=== PATIENT | male | born 1955 | race Caucasian/White ===

== ENCOUNTER 2025-04-16 23:20 | Emergency (ER) | payer MEDICARE, SELFPAY ==
--- NOTE | 2025-04-16 23:43 | ECG_ITS ---
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 Measurements Intervals [place] Rate: 88 P: 0 MA: 0 QRS: 130 QRSD: 105 T: 9 QT: 378 QTc: 460 Interpretive Statements ATRIAL FIBRILLATION INDETERMINATE AXIS LEFT POSTERIOR FASCICULAR BLOCK [QRS AXIS > 109, INFERIOR Q] POSSIBLE ANTERIOR MYOCARDIAL INFARCTION , PROBABLY OLD [30 ms Q WAVE IN V3/V4, OR R < 0.2 mV IN V4] No previous ECG available for comparison Electronically Signed On 04-19-2025 14:14:18 CDT by Margaux Rodrigues M.D. [id number]
[2025-04-16 23:44] VITALS: BP 89/54; PULSE 68; RESP 24; TEMP 36.1; O2SAT 97; BMI 25.8
--- NOTE | 2025-04-17 00:09 | XRR_ITS ---
PROCEDURE INFORMATION: Exam: XR Chest Exam date and time: 04/17/2025 12:49 AM Age: 70 years old Clinical indication: Pain; Chest pressure; Prior surgery; Surgery date: 6+ months; Surgery type: Cabg; Additional info: Chest pain TECHNIQUE: Imaging protocol: Radiologic exam of the chest. Views: 1 view. COMPARISON: No relevant prior studies available. FINDINGS: Lungs: Chronic interstitial coarsening but no acute consolidation or overt pulmonary edema. Pleural spaces: No definite pleural effusion. No pneumothorax. Heart/Mediastinum: Mild cardiomegaly. Bones/joints: Prior median sternotomy. No acute osseous findings. Old left 4th rib fracture. XR/XR chest 1V portable [id number] IMPRESSION: Cardiomegaly, but no acute consolidation or overt edema.
[2025-04-17 00:13] VITALS: BP 104/70; PULSE 67; RESP 17; O2SAT 97
--- NOTE | 2025-04-17 00:17 | ED_ITS ---
HPI - Chest Pain 2 General: Chief Complaint: Chest Pain Stated Complaint: chest pain Time Seen by Provider: 04/17/25 00:08 History of Present Illness: Mr. Doni Ricks is a 70-year-old male with a history of atrial fibrillation and heart failure who presents to the ER for persistent left-sided chest pain. He reports several days of intermittent pain that is now constant and accompanied by significant shortness of breath. The discomfort is not reproducible with palpation or deep inspiration. He notes orthopnea, needing his head elevated at night, and progressive leg swelling. While living at home he took two water pills daily, but since moving to a skilled nursing he has not received diuretics because no physician order exists. He denies prior coronary stenting; a planned stent was canceled at another facility, where he was told he had six to eight months to live. No prior labs, ECGs, echocardiograms, or imaging are available in this system. Related Data Allergies Allergy/AdvReac Type Severity Reaction Status Date / Time aspirin Allergy ALGY-Hives Verified 04/16/25 23:53 Physical Exam 2 Const: COMMON NORMALS: no acute distress, patient oriented x3 and alert HENMT: COMMON NORMALS: normocephalic and atraumatic HEAD & SCALP: n ormocephalic and atraumatic Eye: COMMON NORMALS: Equal, round and reactive pupils present, EOMs intact bilaterally and no scleral icterus PUPIL: Yes Equal, round and reactive pupils present Chest: OTHER: Chest pain is not reproducible with palpation or deep inspiration Resp: OTHER: Mildly tachypneic, clear lungs with exception of the bases which have crackles bilaterally. Moderately orthopneic Cardio: OTHER: Irregularly irregular rhythm, normal rate. GI: COMMON NORMALS: Normal to inspection, nondistended, normoactive bowel sounds present, Soft to palpation and non-tender PALPATION: Yes Soft to palpation Extremity: OTHER: 2+ 2+ pitting edema of the bilateral feet and legs to the mid thigh level. Neuro: COMMON NORMALS: patient oriented x3 SENSORIUM/ORIENTATION: Yes alert Skin: COMMON NORMALS: no rashes or lesions noted GENERAL SKIN EXAM: no rashes or lesions noted Course 2 Vital Signs: Vital signs: Vital Signs Temperature 97 F L 04/16/25 23:44 Pulse Rate 72 04/17/25 01:09 Respiratory Rate 16 04/17/25 00:53 Blood Pressure 112/70 04/17/25 01:09 Pulse Oximetry 93 04/17/25 01:09 Oxygen Delivery Me thod Room Air 04/17/25 01:09 MDM - Chest Pain Medical Decision Making In summary, patient is a 70-year-old male from skilled nursing seen for increased shortness of breath. He tells me that he used to take diuretic medication but has not for some time. BNP is >14,000 and legs have tight, 2+ pitting edema up to the mid thigh level and I do suspect a CHF with exacerbation causing his symptoms. I gave him 80 mg IV Lasix. He became impatient with staff and asked to leave AGAINST MEDICAL ADVICE. Initially did feel he would benefit from at least a short stay in the hospital given his tachypnea and multiple signs of fluid overload. I unfortunately did not have a chance to speak with him before doing so, however he was alert and oriented and able to make decisions for himself. Lab Data 04/17/25 00:56 04/17/25 00:56 Radiology Impressions Chest X-Ray 04/17/25 00:09 IMPRESSION: Cardiomegaly, but no acute consolidation or overt edema. Laboratory Results WBC 7.53 10^3/uL (3.29-11.43) 04/17/25 00:56 RBC 4.49 10^6/uL (3.85-5.65) 04/17/25 00:56 Hgb 10.70 g/dL (11.27-16.99) L 04/17/25 00:56 Hct 34.9 % (37-53) L 04/17/25 00:56 MCV 77.7 fl (82-101) L 04/17/25 00:56 MCH 23.8 pg (27-33) L 04/17/25 00:56 MCHC 30.7 g/dL (30-55) 04/17/25 00:56 RDW 21.7 % (12.1-15.1) H 04/17/25 00:56 Plt Count 269 10^3/cmm (157-399) 04/17/25 00:56 MPV 8.4 fL (7.4-10.4) 04/17/25 00:56 Neut % (Auto) 60.2 % 04/17/25 00:56 Lymph % (Auto) 25.8 % 04/17/25 00:56 Delta % (Auto) 10.4 % 04/17/25 00:56 Eos % (Auto) 2.5 % 04/17/25 00:56 Baso % (Auto) 0.7 % 04/17/25 00:56 Neut # (Auto) 4.54 10^3/uL (1.8-7.7) 04/17/25 00:56 Lymph # (Auto) 1.9 10^3/uL (0.8-4.8) 04/17/25 00:56 Delta # (Auto) 0.8 10^3/uL (0.2-0.9) 04/17/25 00:56 Eos # (Auto) 0.2 10^3/uL (0.0-0.8) 04/17/25 00:56 Baso # (Auto) 0.1 10^3/uL (0.0-0.1) 04/17/25 00:56 Nucleated RBC % (auto) 0 % 04/17/25 00:56 Nucleated RBCs # 0.0 /100WBC 04/17/25 00:56 Sodium 136 mmol/L (136-145) 04/17/25 00:56 Potassium 4.3 mmol/L (3.5-5.1) 04/17/25 00:56 Chloride 102 mmol/L (98-107) 04/17/25 00:56 Carbon Dioxide 22 mmol/L (22-29) 04/17/25 00:56 Anion Gap 16.3 (5-19) 04/17/25 00:56 BUN 11 mg/dL (8-23) 04/17/25 00:56 Creatinine 0.7 mg/dL (0.7-1.2) 04/17/25 00:56 GFR Calculation 111.8 mL/min (90-130) 04/17/25 00:56 Glucose 85 mg/dL (65-115) 04/17/25 00:56 Calculated Osmolality 281 mOsm/kg (285-295) L 04/17/25 00:56 Calcium 9.8 mg/dL (8.5-10.5) 04/17/25 00:56 Total Bilirubin 0.4 mg/dL (0.15-1.2) 04/17/25 00:56 AST 9 U/L (0-40) 04/17/25 00:56 ALT < 5 U/L (0-41) 04/17/25 00:56 Alkaline Phosphatase 134 U/L (40-130) H 04/17/25 00:56 Troponin T Baseline 37 ng/L (0-15) H 04/17/25 00:56 Troponin T 120 Minute 38.94 ng/L (0-15) H 04/17/25 02:49 Delta Troponin T 1.94 ABS# (0-10) 04/17/25 02:49 NT-Pro-B Natriuret Pep 26417 pg/mL (0-125) H 04/17/25 00:56 Total Protein 7.8 g/dL (6.6-8.7) 04/17/25 00:56 Albumin 3.7 g/dL (3.5-5.2) 04/17/25 00:56 Globulin 4.1 g/dL (1.3-4.6) 04/17/25 00:56 All radiology interpretation(s) finalized by discharge EKG Data EKG 1: Interpretation: Time?2342?atrial fibrillation, rate of 88, no ST segment elevation or depression, no T wave versions, QTc = 424 Discharge Plan Discharge Patient Disposition: Left Against Medical Advice Clinical Impression: Acute exacerbation of CHF (congestive heart failure) Condition: Stable Discharge Diet: Low Salt Discharge Activity: Increase activity as tolerated Patient Instructions: Heart Failure (ED) Print Language: Kinyarwanda Coding Level of Care Code ED Power And Recovery Superintendent for Dayo Hough
[2025-04-17 00:41] VITALS: BP 86/56; PULSE 77; RESP 22; O2SAT 90
[2025-04-17 00:53] VITALS: BP 112/57; PULSE 84; RESP 16; O2SAT 98
[2025-04-17 01:04] LABS: Hematocrit 34.9 % (37-53); Hemoglobin 10.70 g/dL (11.27-16.99); Mean Corpuscular HGB Conc 30.7 g/dL (30-55); Mean Corpuscular Hemoglobin 23.8 pg (27-33); Mean Corpuscular Volume 77.7 fl (82-101); Nucleated Red Blood Cells % 0 %; Platelet Count 269 10^3/cmm (157-399); Red Blood Count 4.49 10^6/uL (3.85-5.65); White Blood Count 7.53 10^3/uL (3.29-11.43)
[2025-04-17 01:09] VITALS: BP 112/70; PULSE 72; O2SAT 93
[2025-04-17 01:28] LABS: Troponin(5th) Baseline 37 ng/L (0-15)
[2025-04-17 01:38] LABS: Alanine Aminotransferase < 5 U/L (0-41); Albumin Level 3.7 g/dL (3.5-5.2); Alkaline Phosphatase 134 U/L (40-130); Anion Gap 16.3 (5-19); Aspartate Amino Transferase 9 U/L (0-40); Blood Urea Nitrogen 11 mg/dL (8-23); Calcium 9.8 mg/dL (8.5-10.5); Carbon Dioxide 22 mmol/L (22-29); Chloride 102 mmol/L (98-107); Creatinine Clr Calc Pharmacy 94.2461; Globulin 4.1 g/dL (1.3-4.6); Glucose 85 mg/dL (65-115); NT Pro B Type Natriuretic Pept 14785 pg/mL (0-125); Osmolality Calculated 281 mOsm/kg (285-295); Potassium 4.3 mmol/L (3.5-5.1); Sodium 136 mmol/L (136-145); Total Protein 7.8 g/dL (6.6-8.7)
[2025-04-17] MEDS: FUROsemide 10 mg/mL SDV 10mL 80 MG IVP (02:44)
--- NOTE | 2025-04-17 03:10 | PC.NURSE ---
RN into room to round on patient. Patient demanded to leave stating, I am leaving this place. None of you helped me and I am sick of this! RN apologized and informed pt that staff was busy dealing with another emergency. RN informed pt of importance of staying for treatment and lack of ride back to [facility]. notified of pt leaving AMA. pt AOx4. Pt then called [facility] on cell phone and told them he was going to leave. RN witnessed phone call of staff educating patient to stay. Pt refused and said, I am going to have my son pick me up and get out of this place. Pt requested this RN to speak to [place] staff. RN informed [place] staff of pt leaving AMA, care given while in ED, and of ride not being available until 6 am. [place] staff verbalized understanding. Pt provided brief, clean change of clothing, and signed AMA form. Per pt request, pt placed into WR in wheelchair with a blanket with ride being set up for the morning.
[2025-04-17 03:18] LABS: Troponin 5 2HR 38.94 ng/L (0-15); Troponin 5 2HR Delta 1.94 ABS# (0-10)
== END 2025-04-17 03:48 | disposition left against medical advice (07) ==
PROVIDERS: Emergency Provider Student in an Organized Health Care Education/Training Program
DX: I50.9 Heart failure, unspecified (principal); I48.91 Unspecified atrial fibrillation; Z53.29 Procedure and treatment not carried out because of patient's decision for other reasons; Z88.8 Allergy status to other drugs, medicaments and biological substances
CPT/HCPCS: 36415; 71045; 80053; 83880; 84484; 85025; 93005; 96374; 99285; J1938

== ENCOUNTER 2025-05-18 22:35 | Inpatient (IN) | payer MEDICARE, SELFPAY ==
[2025-05-18 22:36] VITALS: BP 104/74; PULSE 101; RESP 20; TEMP 36.6; O2SAT 99; BMI 24.4
--- OUTSIDE RECORDS SUMMARY | 2025-05-18 22:43 | XMS_ITS | Encounter Summary ---
Author Organization [facility] Address [address] [place] [address] Care Team Providers Care Nocturnist Physician Name Role Phone Dedrick Eason MD Primary Care Provider Unavailable Encounter Details Date Type Department Care Team (Late st Contact Info) Description 05/15/2025 Orders Only [facility] [address] [place] [id number] Ryan Cordova CRNP [address], [address] [place] [id number] Persistent atrial fibrillation (CMS/HCC) (Primary Dx); Atrial flutter with rapid ventricular response (CMS/HCC) Social History Tobacco Use Types Packs/Day Years Used Date Smoking Tobacco: Every Day Cigarettes Last attempted to quit: 05/20/2022 Smokeless Tobacco: Former Quit: 10/02/1998 Alcohol Use Standard Drinks/Week Comments No 0 (1 standard drink = 0.6 oz pur e alcohol) Sex and Gender Information Value Date Recorded Sex Assigned at Not on file 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 Gender Identity Not on file Sexual Orientation Not on file documented as of this encounter Plan of Treatment Upcoming Encounters Date Type Department Care Team (Late st Contact Info) Description 05/27/2025 10:00 AM CDT Office Visit [facility] [address] [place] [address] Ryan Cordova, KATHRIN [address] [facility] [address] [place] [address] Scheduled Orders Name Type Priority Associated Diagnoses Orde r Schedule EKG 12-LEAD ECG Routine Persistent atrial fibrillation (CMS/HCC) Atrial flutter with rapid ventricular response (CMS/HCC) Ordered: 05/15/2025 documented as of this encounter Visit Diagnoses Diagnosis Persistent atrial fibrillation (CMS/HCC)- Primary Atrial fibrillation Atrial flutter with rapid ventricular response (CMS/HCC) Atrial flutter documented in this encounter Care Teams Nocturnist Physician Relationship Specialty Start Date End Date Dedrick Eason MD NO ADDRESS ON FILE PCP - General 08/14/02 documented as of this encounter
--- OUTSIDE RECORDS SUMMARY | 2025-05-18 22:43 | XMS_ITS | Clinical Summary ---
Author Organization [facility] Address [address] [facility] Attn: [place] [address] Care Team Providers Care Front End Software Engineer Name Role Phone Dedrick Eason MD Primary Care Provider Unavailable Allergies Active Allergy Reactions Criticality Noted Date Comments Adhesive Tape-Silicones Rash Low 05/28/2022 Aspirin Other (See Comments) 06/15/2009 aspirin makes my ulcer hurt Lorazepam Confusion Low 06/05/2019 Medications albuterol sulfate 90 mcg/Actuation inhaler Take 1 Puff by inhalation every 6 hours. 8.5 Gram 1 06/02/2022 3:09 PM CDT 2 Active atorvastatin (LIPITOR) 80 mg tablet Take 1 Tablet (80 mg) by mouth daily at bedtime. 30 Tablet 1 3 Active digoxin (LANOXIN) 125 mcg (0.125 mg) tablet Take 1 Tablet (125 mcg) by mouth daily. 30 Tablet 1 3 Active empagliflozin (JARDIANCE) 10 mg tablet Take 1 Tablet (10 mg) by mouth daily in the morning. 30 Tablet 1 3 Active tamsulosin (FLOMAX) 0.4 mg capsule Take 1 Capsule (0.4 mg) by mouth daily after supper. 30 Capsule 1 3 Active furosemide (Lasix) 40 mg tablet Take 1 Tablet (40 mg) by mouth daily. 30 Tablet 3 Active aspirin (ECOTRIN EC) 81 mg Tablet, Delayed Release (E.C.) Take 1 Tablet (81 mg) by mouth daily. 4 Active metoprolol succinate (TOPROL XL) 50 mg Extended Release 24 hour tablet Take 1 Tablet (50 mg) by mouth every 12 hours. 4 Active potassium bicarbonate-citri c acid (Effer-K) 20 mEq Tablet, Effervescent Take 1 Tablet (20 mEq) by mouth 2 times daily. 4 Active melatonin 3 mg Tablet Take 2 Tablets (6 mg) by mouth daily at bedtime. 4 Active oxyCODONE (ROXICODONE) 5 mg tabletIndications :Closed fracture of left hip, initial encounter ([facility]) Take 1 Tablet (5 mg) by mouth every 4 hours as needed for Pain. EKIT Max Daily Amount: 30 mg 90 Tablet 4 Active Active Problems Problem Noted Date Diagnosed Date Melena 09/20/2024 Acute GI bleeding 09/20/2024 Diarrhea 09/19/2024 HFrEF (heart failure with reduced ejection fract ion) 09/18/2024 Congestive heart failure 08/30/2023 Dyspnea 08/30/2023 Acute hypoxic respiratory failure 08/29/2023 Fall 08/29/2023 Metabolic acidosis 08/29/2023 Closed left hip fracture 08/29/2023 Chronic combined systolic an d diastolic CHF (congestive heart failure) 08/29/2023 Atrial flutter with rapid ventricular response 0 06/09/2023 Acute cystitis without hematuria 06/09/2023 Other folate deficiency anemias 06/02/2022 Pancytopenia 06/01/2022 Noncompliance with medications 06/01/2022 Hypoglycemia 05/30/2022 Moderate protein malnutrition 05/30/2022 Persistent atrial fibrillation 05/29/2022 Paroxysmal atrial fibrillati on with rapid ventricular response 05/29/2022 Ischemic cardiomyopathy 05/29/2022 Acute diarrhea 05/29/2022 Narrow complex tachycardia 05/28/2022 Non-rheumatic tricuspid valve insufficiency 12/2018 Leukocytosis (leucocytosis) 06/03/2019 Hypokalemia 06/03/2019 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 06/02/2019 COPD (chronic obstructive pulmonary disease) 10/2018 ASHD (arteriosclerotic heart disease) 06/02/2019 Chest pain 06/02/2019 Mixed hyperlipidemia 03/05/2018 Psychophysiologic insomnia 03/05/2018 Peripheral neuropathic pain-rt foot-entrapment n europathy 08/23/2017 Tobacco use disorder 08/23/2017 S/P coronary artery stent placement 08/23/2017 S/P CABG (coronary artery bypass graft)-in 2009 at [facility] 08/23/2017 Atherosclerosis of coronary artery 08/23/2017 Benign hypertension 08/23/2017 History of pituitary adenoma 08/23/2017 Elevated transaminase level 08/23/2017 Primary osteoarthritis of right foot 07/09/2017 Plantar fibromatosis 07/09/2017 Encounters Date Type Department Care Team Description 05/15/2025 Orders Only [facility] [address] [address] [place] [address] Ryan Cordova CRNP Persistent atrial fibrillation (CMS/HCC) (Primary Dx); Atrial flutter with rapid ventricular response (CMS/HCC) 04/01/2025 External Device Data STL ABSTRACTION Provider, Abstract 03/18/2025 External Device Data STL ABSTRACTION Provider, Abstract 02/25/2025 8:00 AM CDT - 02/25/2025 11:59 PM CDT Hospital Encounter [facility] [address] [place] [address] [facility] 02/22/2025 3:00 AM CDT - 02/22/2025 11:59 PM CDT Hospital Encounter [facility] [address] [place] [address] [facility] Discharge Disposition: Home or Self Care from Last 3 Months Immunizations Immunization Administration Dates Next Due (PNEUMOVAX 23)(50 YRS UP) PN EUMOCOCCAL POLYSACCHARIDE (PPV23) 0.5 ML, IM 08/27/2010,08/27/2010 Influenza Seasonal Unspecifi ed Formulation IM 12/02/2016,06/12/2013,05/23/2012,05/31,07/13/2010 Family History Medical History Relation Name Comments Heart Disease Brother Heart Disease Father Hypertension Father Heart Disease Maternal Grandfather Heart Disease Maternal Grandmother Heart Disease Mother Hypertension Mother Heart Disease Paternal Grandfather Heart Disease Sister Hypertension Sister Relation Name Status Comments Brother Father Maternal Grandfather Maternal Grandmother Mother Paternal Grandfather Alive Paternal Grandmother Sister Social History Tobacco Use Types Packs/Day Years Used Date Smoking Tobacco: Every Day Cigarettes Last attempted to quit: 05/20/2022 Smokeless Tobacco: Former Quit: 10/02/1998 Alcohol Use Standard Drinks/Week Comments No 0 (1 standard drink = 0.6 oz pur e alcohol) Sex and Gender Information Value Date Recorded Sex Assigned at Not on file 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 Gender Identity Not on file Sexual Orientation Not on file Last Filed Vital Signs Vital Sign Reading Time Taken Comments Blood Pressure 102/73 12/31/2024 8:32 PM CDT Pulse 59 12/31/2024 8:32 PM CDT Temperature 36.2 C (97.2 F) 12/31/2024 8:32 PM CDT Respiratory Rate 24 12/31/2024 8:32 PM CDT Oxygen Saturation 100% 12/31/2024 8:32 PM CDT Inhaled Oxygen Concentration - - Weight 67.4 kg (148 lb 9.4 oz) 12/31/2024 3:47 A M CDT Height 177.8 cm (5' 10 ) 12/29/2024 8:15 PM CDT Body Mass Index 21.32 12/29/2024 8:15 PM CDT Plan of Treatment Upcoming Encounters Date Type Department Care Team (Late st Contact Info) Description 05/27/2025 10:00 AM CDT Office Visit [facility] [address] [place] [address] Ryan Cordova CRNP [address] [facility] [address] [place] [address] Health Maintenance Due Date Last Done Comments COLORECTAL SCREENING 2001 Colorectal Cancer Screening 2001 FIT-DNA Q 3 years 2001 FIT/FOBT Q 1 year 2001 Flex Sig/CT Colonography Q 5 years 2001 ZOSTER VACCINE (1 of 2) 2006 PNEUMOCOCCAL VACCINE 50+ YEA RS (2 of 2 - PCV) 06/12/2014 06/12/2013, 08/27/2010, 08/27/2010 RSV VACCINE (60+ or ) (1 - Risk 60-74 years 1-dose series) 2016 Abdominal Aortic Aneurysm (A AA) Screening 2021 COVID-19 Vaccine (3 - 2023-2 5 season) 2024 05/08/2021, 04/10/2021 DTAP/TDAP/TD VACCINES (2 - T d or Tdap) 03/06/2025 03/06/2015 INFLUENZA VACCINE (#1) 2025 7, 05/11/2014, 06/12/2013, Additional history exists Medical Devices Implanted Type Area Injection Mold Tooling Technician Device Identifier Shelf Expiration Date Model / Serial / Lot Tarpley Fem Neck 80mm 04.168.280s - [id number] Implanted:Qty: 1 on 08/31/2023 by Peña Moreau MD at [facility] Tarpley Left: Hip J&J- DEPUY SYNTHES [id number] 05/01/2033 04.168.28 0S / / [id number] Plate Fem Neck 2hl 04.268.000s - [id number] Implanted:Qty: 1 on 08/31/2023 by Peña Moreau MD at [facility] Plate Left: Hip J&J- DEPUY SYNTHES [id number] 07/01/2033 04.268.00 0S / / [id number] Screw Stp Loc Strdr 5x42mm T25 412.215s - [id number] Implanted:Qty: 1 on 08/31/2023 by Peña Moreau MD at [facility] Screw Left: Hip J&J- DEPUY SYNTHES [id number] 08/01/2033 412.215S / / [id number] Screw Stp Loc Strdr 44mm T25 412.216s - [id number] Implanted:Qty: 1 on 08/31/2023 by Peña Moreau MD at [facility] Screw Left: Hip J&J- DEPUY SYNTHES 08/01/2033 412.216S / / [id number] Screw Fem Neck Antirotate 85mm 04.168.485s - [id number] Implanted:Qty: 1 on 08/31/2023 by Peña Moreau MD at [facility] Screw Left: Hip J&J- DEPUY SYNTHES 03/31/2033 04.168.48 5S / / [id number] Log [id number] - Tissue Substitutes & Biologicals - 1 - Sealant Duraseal 5ml Implanted:Qty: 1 on 12/14/2010 Sealant N/A: Brain 01/31/2012 / / [id number] Insurance MEDICARE PART A AND B RX [facility] Medicare Part D RX INFO[employer]ING Medicaid RX [employer] (INTERNAL) [facility] Plans RX [employer] Medicare Part D Advance Directives For more information, please contact: [phone] Documents on File Type Date Recorded Patient Machine Lead Burner Expl anation Advance Directive POA 06/10/2023 10:42 AM A dvance Directive POA * Full Code (Latest Code Status on File) Date Activated Date Inactivated Comments 12/30/2024 1:39 AM 12/31/2024 3:28 PM * Full Code Date Activated Date Inactivated Comments 09/20/2024 10:34 AM 09/23/2024 7:08 PM * NO CPR (In Event of Cardiopulmonary Arrest) Date Activated Date Inactivated Comments 09/18/2024 1:28 AM 09/19/2024 8:08 AM Question Answer Comments Mechanical Ventilation (for respiratory distress) - Invasive (i.e. intubation): No Mechanical Ventilation (for respiratory distress) - Non-Invasive (i.e. BiPAP, CPAP): Yes * NO CPR (In Event of Cardiopulmonary Arrest) Date Activated Date Inactivated Comments 08/31/2023 3:15 PM 09/03/2023 5:52 PM Question Answer Comments Mechanical Ventilation (for respiratory distress) - Invasive (i.e. intubation): No Mechanical Ventilation (for respiratory distress) - Non-Invasive (i.e. BiPAP, CPAP): Yes * Full Code Date Activated Date Inactivated Comments 08/31/2023 2:53 PM 08/31/2023 3:12 PM Care Teams Front End Software Engineer Relationship Specialty Start Date End Date Dedrick Eason MD NO ADDRESS ON FILE PCP - General 08/14/02
--- NOTE | 2025-05-18 22:47 | CTR_ITS ---
PROCEDURE INFORMATION: Exam: CT Abdomen And Pelvis With Contrast Exam date and time: 05/18/2025 11:30 PM Age: 70 years old Clinical indication: Abdominal pain; Generalized; EMS arrival from half-way for AMS. Patient guarding abdomen and randomly yelling ow. ; Additional info: Abd pain TECHNIQUE: Imaging protocol: Computed tomography of the abdomen and pelvis with contrast. Radiation optimization: All CT scans at this facility use at least one of these dose optimization techniques: automated exposure control; mA and/or kV adjustment per patient size (includes targeted exams where dose is matched to clinical indication); or iterative reconstruction. Contrast material: OMN I350; Contrast volume: 100 ml; Contrast route: INTRAVENOUS (IV); COMPARISON: CR (CHEST, ) 05/18/2025 11:00 PM RADIATION DOSE METRICS: Total DLP (mGy-cm): 814.44 FINDINGS: Lungs: There are abnormalities in the lower lung sounds body warrants suggestive for interstitial edema early presentation Heart: Patient is status post open heart coronary artery calcifications and cardiomegaly present no significant pleural effusion. Liver: Irregular contours noted to the liver may represent fatty or fibrotic infiltration. No mass. Gallbladder and biliary ducts: There is decompressed thickened gallbladder could be related to nondistention. Pancreas: Unremarkable. No ductal dilation. Spleen: Unremarkable. No splenomegaly. Adrenal glands: Normal. No mass. Kidneys and ureters: There is presence of vascular calcification right renal hilum. There are no findings to suggest hydronephrosis Stomach and bowel: Stomach is collapsed limiting evaluation. There is mild constipation without obstruction Appendix: Appendix was not visualized no inflammatory changes right lower quadrant Intraperitoneal space: Unremarkable. No free air. No significant fluid collection. Vasculature: Unremarkable. No abdominal aortic aneurysm. Lymph nodes: Unremarkable. No enlarged lymph nodes. Urinary bladder: There is marked abnormal thickening and enhancement of the wall of the urinary bladder the possibility of infection suspect that warrants correlation with urinalysis and further evaluation more significant pathology of the bladder not excluded Reproductive: Unremarkable as visualized. Bones/joints: Patient is status post surgical fixation subcapital fracture left femur nonunited with joint effusion. Soft tissues: Unremarkable. Other findings: CT/CT abdomen pelvis w con* [id number] IMPRESSION: Abnormal appearance to the urinary bladder severe infectious cystitis or infiltrative process of the urothelium not excluded for evaluation recommended . Component could be related to infection and severe cystitis more significant pathology not excluded.
--- NOTE | 2025-05-18 22:47 | CTR_ITS ---
PROCEDURE INFORMATION: Exam: CT Head Without Contrast Exam date and time: 05/18/2025 11:25 PM Age: 70 years old Clinical indication: Altered mental status/memory loss; Confusion or disorientation; [facility]. Patient acting confused. TECHNIQUE: Imaging protocol: Computed tomography of the head without contrast. Radiation optimization: All CT scans at this facility use at least one of these dose optimization techniques: automated exposure control; mA and/or kV adjustment per patient size (includes targeted exams where dose is matched to clinical indication); or iterative reconstruction. COMPARISON: No relevant prior studies available. RADIATION DOSE METRICS: Total DLP (mGy-cm): 1562.19 FINDINGS: Brain: Age-related brain parenchymal atrophy. Areas of hypoattenuation in the periventricular and subcortical deep white matter likely on the basis of chronic microvascular ischemic changes. No acute intra cranial hemorrhage. No mass effect or midline shift. No definitive CT evidence of acute territorial infarction. Cerebral ventricles: Prominence of the lateral ventricular system likely on the basis of parenchymal volume loss. Paranasal sinuses: Visualized sinuses are unremarkable. No fluid levels. Mastoid air cells: Visualized mastoid air cells are well aerated. Bones: Intact calvarium. There are multiple sclerotic foci within the calvarium mainly the frontal calvarium. Soft tissues: Unremarkable. CT/CT head wo con* [id number] IMPRESSION: 1. No acute intracranial abnormality. Senescent changes. 2. Multiple sclerotic foci within the frontal calvarium. Correlate for a prior history of malignancy.
--- NOTE | 2025-05-18 22:47 | XRR_ITS ---
PROCEDURE INFORMATION: Exam: XR Chest Exam date and time: 05/18/2025 11:00 PM Age: 70 years old Clinical indication: Other: Altered mental status; Additional info: AMS TECHNIQUE: Imaging protocol: Radiologic exam of the chest. Views: 1 view. COMPARISON: CR (CHEST, ) 04/17/2025 12:49 AM FINDINGS: Lungs: No lobar consolidation. Pleural spaces: No sizable pleural effusion or pneumothorax. Heart/Mediastinum: Cardiomegaly. Bones/joints: Median sternotomy wires and postsurgical changes of the mediastinum. Other findings: Mild congestive changes. XR/XR chest 1V portable [id number] IMPRESSION: As above.
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
--- NOTE | 2025-05-18 22:48 | ECG_ITS ---
[employer] Test Date: 2025-05-18 Pat Name: Doni Ricks Department: Room: Gender: Male Innovation Manager: : 1955 Requested By: Isai Boyd Order Number: [id number] Serrato MD: Lucas Pino M.D. Measurements Intervals [place] Rate: 91 P: 0 [place]: 0 QRS: -35 QRSD: 117 T: 148 QT: 402 QTc: 495 Interpretive Statements ATRIAL FIBRILLATION LEFT AXIS DEVIATION [QRS AXIS < -30] LOW QRS VOLTAGE IN PRECORDIAL LEADS [QRS DEFLECTION < 1.0 mV IN CHEST LEADS] INCOMPLETE RIGHT BUNDLE BRANCH BLOCK [90+ ms QRS DURATION, TERMINAL R IN V1/V2, 40+ ms S IN I/aVL/V4/V5/V6] POSSIBLE ANTERIOR MYOCARDIAL INFARCTION , PROBABLY OLD [30 ms Q WAVE IN V3/V4, OR R < 0.2 mV IN V4] Compared to ECG 04/16/2025 23:43:30 Left-axis deviation now present Low QRS voltage now present Incomplete right bundle-branch block now present Left posterior fascicular block no longer present Electronically Signed On 05-19-2025 13:42:32 CDT by Lucas Pino M.D. [email or web address] [id number]
[2025-05-18 23:18] VITALS: RESP 24; O2SAT 98
[2025-05-18] MEDS: ondansetron 2 mg/ML SDV 2 mL 4 MG IVP (23:18)
[2025-05-18] MEDS: haloperidol inj 5 mg/mL INJ 1 mL 3 MG IVP (23:18)
[2025-05-18] MEDS: morphine 4 mg/mL SDV 1 mL IVP (23:18)
[2025-05-18] MEDS: iohexol 350 mg/mL 500 mL Btl (per mL) IV (23:29)
[2025-05-18 23:34] LABS: Glucose Urine UA Negative (Normal); Nitrate Urine Positive (Negative); Specific Gravity, Urine 1.009 (1.005-1.030)
[2025-05-18 23:35] LABS: Hematocrit 35.7 % (37-53); Hemoglobin 10.70 g/dL (11.27-16.99); Mean Corpuscular HGB Conc 30.0 g/dL (30-55); Mean Corpuscular Hemoglobin 22.7 pg (27-33); Mean Corpuscular Volume 75.6 fl (82-101); Nucleated Red Blood Cells % 0 %; Platelet Count 294 10^3/cmm (157-399); Red Blood Count 4.72 10^6/uL (3.85-5.65); White Blood Count 8.79 10^3/uL (3.29-11.43)
[2025-05-18 23:43] VITALS: BP 96/43; PULSE 88; RESP 17; O2SAT 95
[2025-05-18 23:50] LABS: Troponin(5th) Baseline 38 ng/L (0-15)
[2025-05-18 23:54] LABS: Alanine Aminotransferase < 5 U/L (0-41); Albumin Level 4.2 g/dL (3.5-5.2); Alkaline Phosphatase 147 U/L (40-130); Anion Gap 19.9 (5-19); Aspartate Amino Transferase 11 U/L (0-40); Blood Urea Nitrogen 16 mg/dL (8-23); Calcium 10.5 mg/dL (8.5-10.5); Carbon Dioxide 20 mmol/L (22-29); Chloride 104 mmol/L (98-107); Creatinine Clr Calc Pharmacy 78.1185; Globulin 3.8 g/dL (1.3-4.6); Glucose 98 mg/dL (65-115); Lipase 27 U/L (13-60); Magnesium 2.1 mg/dL (1.7-2.3); Osmolality Calculated 289 mOsm/kg (285-295); Potassium 4.9 mmol/L (3.5-5.1); Sodium 139 mmol/L (136-145); Total Protein 8.0 g/dL (6.6-8.7)
[2025-05-19] VITALS (38 sets, daily range): BP systolic 78–121; BP diastolic 44–89; PULSE 58–125; RESP 11–32; TEMP 36.4; O2SAT 90–98
[2025-05-19 00:06] LABS: NT Pro B Type Natriuretic Pept 9981 pg/mL (0-125)
[2025-05-19 00:22] LABS: UA Manual Slide Review YES; UA Slide Review UA Slide Review Perf
[2025-05-19 00:25] LABS: Add Urine Microscopic? YES; Universal Test for UA Present (0)
[2025-05-19] MEDS: piperacillin-tazobactam 3.375 GM in sodium chloride 0.9% (plus) 50 ML IV ×3 (00:35→20:24)
[2025-05-19 00:47] LABS: Lactic Sepsis W/Reflex 2.8 mmol/L (0.5-2.2); Reflex Lactate Order REFLEX LACTIC ORDERD
[2025-05-19 01:48] LABS: Troponin 5 2HR 35.08 ng/L (0-15)
[2025-05-19 01:50] LABS: Lactic Acid level (Lactate) 0.7 mmol/L (0.5-2.2)
[2025-05-19 02:03] LABS: Troponin 5 2HR Delta -2.92 ABS# (0-10)
--- NOTE | 2025-05-19 02:33 | P.HP_ITS ---
Providers/Chief Complaint 2 Admitting Physician: Lenny Marin MD Primary Care Provider: Rahat Rick MD Chief Complaint: ams History of Present Illness Doni Ricks is a 70 year old male resides at [facility] last seen in April for CHF exacerbation with pitting edema, was treated with diuretics then left AMA after going inpatient. Today patient was reluctant to seek medical care but family insisted that he come in due to 3-day history of abdominal pain. Patient was combative with staff and required restraints but then improved after Haldol now cooperative but sleepy. Patient reports that he is cold and feels lousy states his left hip hurts and he has not been able to walk for 8 to 9 years after a fall injury. States he is lived at the halfway for 6 years. Patient has a radiographic finding of broken hip fixed with screws and poorly healing. Patient CT scan shows thickened bladder consistent with chronic severe infectious cystitis cannot completely exclude malignancy Review of Systems 2 Narrative: General positive for chills no fevers denies weight change positive for dysuria now denies hematuria but states he has had it in the past reports dribbling but not hesitancy. Medications/Allergies Allergies Allergy/AdvReac Type Severity Reaction Status Date / Time adhesive tape Allergy Unknown Verified 05/18/25 22:42 aspirin Allergy ALGY-Hives Verified 04/16/25 23:53 lorazepam Allergy Unknown Verified 05/18/25 22:42 povidone-iodine (From Allergy Unknown Verified 05/18/25 22:42 Betadine) PFSH Acute 2 PFSH: Social History (Updated 05/19/25 @ 02:39 by Lenny Marin MD) Smoking and tobacco/nicotine status: current every day tobacco/nicotine user cigarettes Number of cigarettes per day: 6-10 Alcohol intake: never Substance/Drug Use: never Additional social history: Patient denies alcohol or drug use states he smokes 6 cigarettes a day he wants DNR status as discussed on 05/19/2025 with Lenny Marin MD Vitals/I&O/Wt Last Vital Signs Temp 97.9 F 05/18/25 22:36 Pulse 107 H 05/19/25 01:30 Resp 20 H 05/19/25 01:30 BP 100/70 05/19/25 01:30 Pulse Ox 95 05/19/25 01:30 O2 Del Method Room Air 05/19/25 01:30 Weight last 48 hrs Weight 81.647 kg Physical Exam 2 Narrative: General well-developed well-nourished chronically ill-appearing male drowsy and not engaged continually falls back to sleep. Oropharynx edentulous CV regular rate and rhythm Lungs clear to auscultation bilaterally Abdomen liver is palpable enlarged and tender suprapubic area patient reports bladder urgency with palpation on exam. Back no flank tenderness Data 05/18/25 23:11 05/18/25 23:11 Micro: Microbiology 05/18/25 23:13 Blood Culture - Preliminary Blood SPECIMEN COLLECTED 05/18/25 23:11 Blood Culture - Preliminary Blood SPECIMEN COLLECTED CT Abd/Pel: Radiologist's impression: Abnormal appearance to the urinary bladder severe infectious cystitis or infiltrative process of the urothelium not excluded for evaluation recommended . Component could be related to infection and severe cystitis more significant pathology not excluded. A&P Assessment and plan 1. Sepsis: Improved with antibiotics and sepsis fluid bolus 2. Acute UTI: Patient given Zosyn in the emergency department urine and blood cultures are pending ongoing to switch him over to Rocephin but will need to follow-up his urine cultures to make sure it is not ESBL 3. Altered mental status: Improved but patient is still somnolent after the Haldol. At this time he is cooperative and appreciative but hard to get history from PDMP PDMP Reviewed: Not Reviewed Attestations 2 Medical Necessity Statement*: Patient to the hospital and expected to require greater than 2 midnights for UTI with sepsis Coding Level of Care Code 39457 Diagnoses Sepsis A41.9 Acute UTI N39.0 Altered mental status R41.82 Time Spent (min) 55
[2025-05-19] MEDS: cefTRIAXone 1,000 mg SDV 1000 MG IVP (02:59)
[2025-05-19] MEDS: HYDROcodone-acetaminophen 5-325 mg Tablet 1 TAB PO ×3 (03:00→21:41)
--- NOTE | 2025-05-19 03:08 | ECG_ITS ---
[employer] Test Date: 2025-05-19 Pat Name: Doni Ricks Department: Room: Gender: Male Hog Man: : 1955 Requested By: Isai Boyd Order Number: [id number] Ama MD: Beni Leo M.D. Measurements Intervals [place] Rate: 118 P: 75 [place]: 153 QRS: -61 QRSD: 114 T: 185 QT: 373 QTc: 523 Interpretive Statements SINUS TACHYCARDIA LOW QRS VOLTAGE [QRS DEFLECTION < 0.5/1.0 mV IN LIMB/CHEST LEADS] LEFT ANTERIOR FASCICULAR BLOCK [QRS AXIS <= -45, QR IN I, RS IN II] POSSIBLE ANTERIOR MYOCARDIAL INFARCTION , OF INDETERMINATE AGE [30 ms Q WAVE IN V3/V4, OR R < 0.2 mV IN V4] INFERIOR MYOCARDIAL INFARCTION , PROBABLY OLD [40+ ms Q WAVE AND/OR ST/T ABNORMALITY IN II/aVF] Compared to ECG 05/18/2025 23:46:33 Left anterior fascicular block now present Incomplete right bundle-branch block no longer present Myocardial infarct finding still present Electronically Signed On 05-24-2025 09:52:08 CDT by Beni Leo M.D. [email or web address] [id number]
[2025-05-19 04:09] LABS: Iron 14 ug/dL (59-158); Total Iron Binding Capacity 232 mcg/dl; Unsaturated Iron Binding 218 ug/dL (112-347)
[2025-05-19 06:13] LABS: Troponin 5 6HR 40.62 ng/L (0-15); Troponin 5 6HR Delta 2.62 ng/L (0-12)
--- NOTE | 2025-05-19 07:31 | PC.PHAR ---
Pt is resident at [facility]
--- NOTE | 2025-05-19 09:19 | ECG_ITS ---
[employer] Test Date: 2025-05-19 Pat Name: Doni Ricks Department: Room: EDIP Gender: Male Riprap Man: : 1955 Requested By: Isai Boyd Order Number: [id number] Ama MD: Beni Leo M.D. Measurements Intervals [place] Rate: 70 P: 0 RI: 0 QRS: -20 QRSD: 109 T: 123 QT: 479 QTc: 519 Interpretive Statements ATRIAL FIBRILLATION WITH ABERRANT CONDUCTION OR VENTRICULAR PREMATURE COMPLEXES POSSIBLE ANTERIOR MYOCARDIAL INFARCTION , OF INDETERMINATE AGE [30 ms Q WAVE IN V3/V4, OR R < 0.2 mV IN V4] Compared to ECG 05/19/2025 03:08:14 Ventricular premature complex(es) now present Aberrant conduction of supraventricular beat(s) now present Sinus tachycardia no longer present Left anterior fascicular block no longer present Myocardial infarct finding still present Electronically Signed On 05-24-2025 09:51:06 CDT by Beni Leo M.D. [id number] [id number]
[2025-05-19] MEDS: norepinephrine 4 MG/250 ML BAG 3.75 MG IV (10:34)
--- NOTE | 2025-05-19 12:47 | PM.MISC ---
Miscellaneous Note Note: Evaluated this morning at the bedside. Patient is hypotensive. Order placed for Levophed and transferred to ICU. Will switch from ceftriaxone to Zosyn. CT abdomen pelvis reviewed. Iron studies reviewed. Evidence of iron deficiency anemia however due to ongoing sepsis secondary to UTI we will hold off on administering IV iron at this time. Urine culture blood culture pending. Agree with assessment and plan of attending physician. Patient appears quite deconditioned and weak. Denies any pain at this time. Denies shortness of breath. Laying in bed. Appears ill. Morning labs pending from this morning.
[2025-05-19 13:26] LABS: Hematocrit 30.4 % (37-53); Hemoglobin 8.90 g/dL (11.27-16.99); Mean Corpuscular HGB Conc 29.3 g/dL (30-55); Mean Corpuscular Hemoglobin 22.7 pg (27-33); Mean Corpuscular Volume 77.6 fl (82-101); Nucleated Red Blood Cells % 0 %; Platelet Count 235 10^3/cmm (157-399); Red Blood Count 3.92 10^6/uL (3.85-5.65); White Blood Count 7.25 10^3/uL (3.29-11.43)
[2025-05-19 13:42] LABS: Alanine Aminotransferase < 5 U/L (0-41); Albumin Level 3.2 g/dL (3.5-5.2); Alkaline Phosphatase 102 U/L (40-130); Anion Gap 12.0 (5-19); Aspartate Amino Transferase 8 U/L (0-40); Blood Urea Nitrogen 13 mg/dL (8-23); Calcium 9.1 mg/dL (8.5-10.5); Carbon Dioxide 20 mmol/L (22-29); Chloride 108 mmol/L (98-107); Creatinine Clr Calc Pharmacy 86.7984; Globulin 3.4 g/dL (1.3-4.6); Glucose 80 mg/dL (65-115); Osmolality Calculated 281 mOsm/kg (285-295); Potassium 4.0 mmol/L (3.5-5.1); Sodium 136 mmol/L (136-145); Total Protein 6.6 g/dL (6.6-8.7)
[2025-05-20] VITALS (61 sets, daily range): BP systolic 77–135; BP diastolic 53–94; PULSE 58–126; RESP 12–37; TEMP 35.9–36.9; O2SAT 81–99
[2025-05-20] MEDS: HYDROcodone-acetaminophen 5-325 mg Tablet 1 TAB PO ×3 (02:42→20:36)
[2025-05-20] MEDS: amiodarone 150 MG/100 ML PREMIX 400 MG IV (03:14)
[2025-05-20 03:31] LABS: Hematocrit 32.4 % (37-53); Hemoglobin 9.60 g/dL (11.27-16.99); Mean Corpuscular HGB Conc 29.6 g/dL (30-55); Mean Corpuscular Hemoglobin 23.0 pg (27-33); Mean Corpuscular Volume 77.7 fl (82-101); Nucleated Red Blood Cells % 0 %; Platelet Count 259 10^3/cmm (157-399); Red Blood Count 4.17 10^6/uL (3.85-5.65); White Blood Count 7.33 10^3/uL (3.29-11.43)
[2025-05-20 04:00] LABS: Anion Gap 15.1 (5-19); Blood Urea Nitrogen 10 mg/dL (8-23); Calcium 9.6 mg/dL (8.5-10.5); Carbon Dioxide 20 mmol/L (22-29); Chloride 105 mmol/L (98-107); Creatinine Clr Calc Pharmacy 97.6482; Glucose 94 mg/dL (65-115); Osmolality Calculated 281 mOsm/kg (285-295); Potassium 4.1 mmol/L (3.5-5.1); Sodium 136 mmol/L (136-145)
[2025-05-20] MEDS: piperacillin-tazobactam 3.375 GM in sodium chloride 0.9% (plus) 50 ML IV ×3 (05:08→20:34)
[2025-05-20] MEDS: polyethylene glycol 3350 Pkt 17 gm PO (07:44)
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
[2025-05-20 09:29] LABS: Estmated Average Glucose 117; Hemoglobin A1C 5.7 % (4.0-6.0)
[2025-05-20 09:59] LABS: Procalcitonin 0.04 ng/mL (0-0.5); Thyroid Stimulating Hormone 8.88 uIU/mL (0.27-4.20); Vitamin B12 255 pg/mL (232-1245)
[2025-05-20 10:09] LABS: Iron 20 ug/dL (59-158); Total Iron Binding Capacity 274 mcg/dl; Unsaturated Iron Binding 254 ug/dL (112-347)
--- NOTE | 2025-05-20 13:57 | PM.PN ---
Subjective Subjective: Hospital course, labs appreciated. Levophed discontinued earlier in the day. Blood pressure maintained over 65. Patient is awake and alert to self, date of . He is aware that he was having hallucinations before. Still continues to have hallucination but able to differentiate between hallucinations and real voices. Not alert to place. Vitals/I&O/Wt Last Vital Signs Temp 97.8 F 05/20/25 12:00 Pulse 116 H 05/20/25 12:00 Resp 33 H 05/20/25 12:00 BP 127/94 05/20/25 12:00 Pulse Ox 95 05/20/25 12:00 O2 Del Method Room Air 05/20/25 09:55 05/19/25 05/20/25 05/20/25 22:59 06:59 14:59 Intake Total 339.250 / 1531.740 5491.125 / 2748.375 1444.042 / 1444.042 Balance 339.250 / 3536.791 7685.125 / 2748.375 1444.042 / 1444.042 Weight last 48 hrs Weight 76.3 kg Weight 81.647 kg Physical Exam Narrative: General well-developed well-nourished chronically ill-appearing male, AO x 2 to 3 Oropharynx edentulous CV regular rate and rhythm Lungs clear to auscultation bilaterally Abdomen liver is palpable enlarged and tender suprapubic area patient reports bladder urgency with palpation on exam. Back no flank tenderness Data 05/20/25 03:00 05/20/25 03:00 Micro: Microbiology 05/18/25 23:13 Blood Culture - Preliminary Blood NEGATIVE TO DATE 05/18/25 23:11 Blood Culture - Preliminary Blood NEGATIVE TO DATE A&P Assessment and plan 1. Altered mental status: Most likely in setting of sepsis due to UTI leading to worsening dementia along with new medication which started 4 days prior to amission, namely zoloft and alprzolam for agitation. Resolving. Frequent re-orientation. Out of bed to chair 2. Sepsis: Present on admission. In setting of UTI. Associated with metabolic encephalopathy Follow-up blood culture, urine culture. Septic shock resolved. Keep mean blood pressure 65. Levophed discontinued earlier in the day. Change Ringer lactate to 75 degrees cc per hour. 3. Acute UTI: Follow-up blood culture, urine culture. De-escalate antibiotics as per urine culture. For now continue with IV Zosyn. 4. Atrial fibrillation with RVR: Continue with amiodarone drip for now. Start on metoprolol 25 mg twice daily if mean artery pressure remains over 65 in next 4 to 5 hours. Check echocardiogram. 5. Dementia: As per med rec from the senior care Zoloft and alprazolam started recently. For now we will hold off on alprazolam. Change Zoloft to 50 mg daily. Continue with home dose of melatonin. Will start on donepezil nightly. 6. Chronic anticoagulation: Takes Xarelto at home. Hemoglobin stable. Stop Lovenox prophylaxis and switch to full dose Xarelto at home dose. Plan: CODE STATUS: DNR/DNI. Discussed until with patient's mhekitsi-hu-wqm on phone. Btbiosvr-se-mvb and son will be the DPOA. #for bhkvpnyf-us-rws would be [phone]. Continue with cardiac diet. Protonix OPD prophylaxis Verified to be sufficient for DVT prophylaxis Restart other chronic home medications including finasteride, gabapentin, melatonin, Xarelto. PDMP PDMP Reviewed: Last Reviewed 05/20/25 08:57 by Gilmer Conn MD Attestations Medical Necessity Statement*: Requires further hospitalization for management of septic shock in setting of UTI, altered mental status in setting of sepsis, cystitis, worsening dementia Diagnoses Altered mental status R41.82 Sepsis A41.9 Acute UTI N39.0 Atrial fibrillation with RVR I48.91 Dementia F03.90 Chronic anticoagulation Z79.01
[2025-05-20] MEDS: MELATONIN 3 MG TABLET PO (20:36)
--- NOTE | 2025-05-20 22:00 | PC.NURSE ---
Report called to BRIELLE Jones. Patient taken in bed on monitor. No issues during transfer. Patient settled with CSU nurse. Nurse had no questions.
[2025-05-21] VITALS (25 sets, daily range): BP systolic 90–132; BP diastolic 57–92; PULSE 49–112; RESP 12–61; TEMP 36.1–37; O2SAT 78–97
[2025-05-21] MEDS: HYDROcodone-acetaminophen 5-325 mg Tablet 1 TAB PO ×5 (00:32→21:25)
[2025-05-21 04:08] LABS: Hematocrit 29.3 % (37-53); Hemoglobin 8.80 g/dL (11.27-16.99); Mean Corpuscular HGB Conc 30.0 g/dL (30-55); Mean Corpuscular Hemoglobin 22.4 pg (27-33); Mean Corpuscular Volume 74.6 fl (82-101); Nucleated Red Blood Cells % 0 %; Platelet Count 228 10^3/cmm (157-399); Red Blood Count 3.93 10^6/uL (3.85-5.65); White Blood Count 8.35 10^3/uL (3.29-11.43)
[2025-05-21 04:27] LABS: Alanine Aminotransferase < 5 U/L (0-41); Albumin Level 3.2 g/dL (3.5-5.2); Alkaline Phosphatase 98 U/L (40-130); Anion Gap 14.9 (5-19); Aspartate Amino Transferase 9 U/L (0-40); Blood Urea Nitrogen 9 mg/dL (8-23); Calcium 9.2 mg/dL (8.5-10.5); Carbon Dioxide 19 mmol/L (22-29); Chloride 108 mmol/L (98-107); Creatinine Clr Calc Pharmacy 84.4549; Globulin 3.2 g/dL (1.3-4.6); Glucose 88 mg/dL (65-115); Osmolality Calculated 284 mOsm/kg (285-295); Potassium 3.9 mmol/L (3.5-5.1); Sodium 138 mmol/L (136-145); Total Protein 6.4 g/dL (6.6-8.7)
[2025-05-21 04:31] LABS: Cholesterol 113 mg/dL (0-200); HDL Cholesterol 19 mg/dL (60-100); Magnesium 1.9 mg/dL (1.7-2.3); Triglycerides 90 mg/dL (0-150); VLDL Cholestrol Calculation 18 mg/dL (0-30)
[2025-05-21] MEDS: piperacillin-tazobactam 3.375 GM in sodium chloride 0.9% (plus) 50 ML IV ×3 (05:31→20:44)
--- NOTE | 2025-05-21 10:05 | P.CONIM_ITS ---
<Statement entered by Beni Leo M.D - 05/22/25 11:13> Patient was cared for in conjunction with an advanced practice practitioner.? I reviewed the chart and all pertinent data including imaging, telemetry, and laboratory results.? I discussed the patient in detail with the advanced practice practitioner.? Please see?their note for consult note, testing results and agreed upon plan of care for the patient. Providers/Reason For Consult 2 Consulting Physician/Specialty*: Dr. Leo, interventional cardiology Reason for Consult*: New onset LV dysfunction Requesting Physician: Gilmer Conn MD Attending Physician: Gilmer Conn MD Primary Care Provider: Rahat Rick MD History of Present Illness History of Present Illness Doni Ricks is a 70 year old male with past medical history of atrial fibrillation, congestive heart failure. He was admitted 05/19/2025 for altered mental status, UTI, septic shock. He required Levophed for time however that has been discontinued and blood pressure is stabilized in the 80-100 systolic range. Consult is requested for LV dysfunction, echocardiogram obtained 05/20/2025: LVEF 13%, global LV hypokinesis, grade 2 diastolic dysfunction, moderate tricuspid regurgitation. He did have atrial fibrillation with RVR requiring amiodarone infusion which has been transitioned to oral amiodarone 200 mg twice daily. He is anticoagulated with Xarelto 20 mg daily, beta-moni metoprolol tartrate 25 mg twice daily. At the time of my examination he is in atrial flutter, heart rate 49 bpm. He seems to be well oriented, tells me that he had CABG x 5 15 years ago in [place]. He reports his LV dysfunction is not new and he has had heart failure since his bypass. He reports some left shoulder pain since using his arm to turn over in bed this morning. No chest pain, no worsening shortness of breath. Medications/Allergies Home Medications ?Medication ?Instructions ?Recorded ?Confirmed ?Last Taken ?Type acetaminophen 325 mg tablet 650 mg PO Q6H PRN Pain 05/19/25 05/18/25 History albuterol sulfate 90 mcg/actuation 2 puff inhalation Q 6H PRN 05/19/25 05/19/25 Unknown History aerosol inhaler Shortness Of Breath Or Wheez ing alprazolam 0.25 mg tablet 0.25 mg PO BID 05/19/2505/0205/18/25 History budesonide 0.5 mg/2 mL suspension 0.5 mg inhalation BI D 05/19/25 05/19/25 05/18/25 History for nebulization finasteride 5 mg tablet 5 mg PO DAILY 05/19/2505/1905/18/25 History furosemide 20 mg tablet See Rx Instructions .Route . COMPLEX 05/19/25 05/19/25 Unknown History gabapentin 100 mg capsule 200 mg PO TID 05/19/2505/1905/18/25 History melatonin 5 mg tablet 5 mg PO BEDTIME 05/19/2505/18/25 History metoprolol tartrate 25 mg tablet 25 mg PO BID 05/19/25 05/19/25 05/18/25 History nitroglycerin 0.4 mg sublingual 0.4 mg sublingual Q5M PRN Chest 05/19/25 05/19/25 Unknown History tablet (Nitrostat) Pain nutritional supplements See Rx Instructions .Route . COMPLEX 05/19/25 05/19/25 Unknown History nystatin 100,000 unit/gram topical See Rx Instructions .Route .COMPLEX 05/19/25 05/19/25 05/18/25 History powder olanzapine 5 mg tablet 5 mg PO DAILY 05/19/2505/1905/15/25 History oxycodone 20 mg/mL oral concentrate 5 mg PO TID 05/19/25 05/18/25 History pantoprazole 40 mg tablet,delayed 40 mg PO DAILY 05/1905/19/25 05/18/25 History release polyethylene glycol 3350 17 17 g PO DAILY 05/19/2505/18/25 History gram/dose oral powder (Miralax) rivaroxaban 20 mg tablet (Xarelto) 20 mg PO DAILY 05/0205/19/25 05/18/25 History sertraline 100 mg tablet 100 mg PO DAILY 05/19/2505/18/25 History spironolactone 25 mg tablet 25 mg PO DAILY 05/19/2505/18/25 History tamsulosin 0.4 mg capsule 0.4 mg PO DAILY 05/19/2505/18/25 History Allergies Allergy/AdvReac Type Severity Reaction Status Date / Time adhesive tape Allergy Unknown Verified 05/18/25 22:42 aspirin Allergy ALGY-Hives Verified 04/16/25 23:53 lorazepam Allergy Unknown Verified 05/18/25 22:42 povidone-iodine (From Allergy Unknown Verified 05/18/25 22:42 Betadine) Current Medications Generic Name Dose Route Start Last Admin Trade Name Freq PRN Reason Stop Dose Admin Hydrocodone Bitart/Acetaminophen 1 tab 05/19/25 02:37 05/21/25 08:10 Hydrocodone-Acetaminophen 5-325 Mg Tablet PO 1 tab Q4H PRN Administration MODERATE TO SEVERE PAIN Budesonide 0.5 mg 05/21/25 08:00 05/21/25 08:08 Budesonide 0.5 Mg/2 Ml Neb INHALATION 0.5 mg BID.RESPIRATORY LUIZA Administration Donepezil HCl 10 mg 05/20/25 21:00 05/20/25 20:35 Donepezil 5 Mg Tablet PO 10 mg BEDTIME LUIZA Administration Finasteride 5 mg 05/20/25 09:00 05/21/25 08:10 Finasteride 5 Mg Tablet PO 5 mg DAILY LUIZA Administration Gabapentin 200 mg 05/20/25 09:00 05/21/25 08:08 Gabapentin 100 Mg Capsule PO 200 mg TID LUIZA Administration Piperacillin Sod/Tazobactam 50 mls @ 12.5 mls/hr 05/19/25 13:00 05/21/25 05:31 Sod 3.375 gm/ Sodium Chloride IV 12.5 mls/hr Q8H LUIZA Administration Amiodarone HCl/Dextrose 360 mg in 200 mls @ 0 mls/hr 05/20/25 03:20 05/20/25 22:43 Nexterone IV 0 mg/min .Q0M LUIZA 0 mls/hr Protocol Titration Per Protocol Ketorolac Tromethamine 10 mg 05/19/25 02:37 05/21/25 05:17 Ketorolac 10 Mg Tablet PO 05/24/25 02:36 10 mg Q6H PRN Administration MODERATE PAIN Melatonin 3 mg 05/20/25 21:00 05/20/25 20:36 Melatonin 3 Mg Tablet PO 3 mg BEDTIME LUIZA Administration Metoprolol Tartrate 25 mg 05/20/25 14:05 05/21/25 08:09 Metoprolol Tartrate 25 Mg Tablet PO 25 mg BID@0900,2100 LUIZA Administration Pantoprazole Sodium 40 mg 05/19/25 09:00 05/21/25 08:[address] 40 Mg Tablet PO 40 mg DAILY LUIZA Administration Rivaroxaban 20 mg 05/20/25 09:00 05/21/25 08:10 Rivaroxaban 10 Mg Tablet PO 20 mg DAILY LUIZA Administration Sertraline HCl 50 mg 05/21/25 09:00 05/21/25 08:09 Sertraline 100 Mg Tablet PO 50 mg DAILY LUIZA Administration Tamsulosin HCl 0.4 mg 05/19/25 09:00 05/21/25 08:08 Tamsulosin 0.4 Mg Capsule PO 0.4 mg DAILY LUIZA Administration PFSH Acute 2 PFSH: Medical History Chronic anticoagulation Dementia Atrial fibrillation with RVR Social History Smoking and tobacco/nicotine status: current every day tobacco/nicotine user cigarettes Number of cigarettes per day: 6-10 Alcohol intake: never Substance/Drug Use: never Additional social history: Patient denies alcohol or drug use states he smokes 6 cigarettes a day he wants DNR status as discussed on 05/19/2025 with Lenny Marin MD Vitals/I&O/Wt Last Vital Signs Temp 98.3 F 05/21/25 05:00 Pulse 55 L 05/21/25 08:08 Resp 22 H 05/21/25 08:08 BP 116/84 05/21/25 06:00 Pulse Ox 94 05/21/25 08:08 O2 Del Method Room Air 05/21/25 08:08 05/20/25 05/21/25 05/21/25 22:59 06:59 14:59 Intake Total 1493.89 / 2987.932 50 / 2987.932 Balance 1493.89 / 2987.932 50 / 2987.932 Weight last 48 hrs Weight 170 lb 1.6 oz Weight 168 lb 3.403 oz Physical Exam 2 Const: COMMON NORMALS: no acute distress and patient oriented x3 GENERAL APPEARANCE: cooperative and comfortable ORIENTATION/CONSCIOUSNESS: Yes awake, Yes oriented to person, Yes oriented to place and Yes oriented to time Chest: COMMONS NORMALS: normal inspection of the chest and normal palpation of entire chest wall CHEST: Yes Symmetrical chest wall rise Resp: COMMON NORMALS: normal respiratory effort, No retractions, No use of accessory muscles and clear to auscultation bilaterally EFFORT & INSPECTION: Yes symmetric chest movement AUSCULTATION: clear to auscultation bilaterally Cardio: COMMON NORMALS: S1 normal heart sound present, S2 normal heart sound present, No gallops present (Cardio), No clicks present (Cardio), No murmurs present (Cardio) and No rub (Cardio) RATE: bradycardic RHYTHM: abnormal rhythm regularly irregular HEART SOUNDS: S1 normal heart sound present and S2 normal heart sound present PERIPHERAL PULSES: radial pulses present Extremity: COMMON NORMALS: no pedal edema Neuro: COMMON NORMALS: patient oriented x3 and moves all extremities S ENSORIUM/ORIENTATION: Yes oriented to person, Yes oriented to place and Yes oriented to time Data 05/21/25 03:36 05/21/25 03:36 A&P Assessment and plan 1. Atrial flutter: 2. Acute UTI: 3. Sepsis: 4. Systolic CHF: Plan: We do not have any previous records to compare echocardiogram data. He is agreeable to perform Lexiscan stress test, his son is DPOA will need to discuss with him prior to any testing. Patient is a DNR. Amiodarone is off currently, he is on metoprolol which we recommend to hold due to heart rate of 49 bpm unless he develops RVR. PDMP PDMP Reviewed: Not Reviewed Coding Level of Care Code Acute Code for g Fwd Diagnoses Atrial flutter I48.92 Acute UTI N39.0 Sepsis A41.9 Systolic CHF I50.20
--- NOTE | 2025-05-21 10:35 | PC.SOCIAL ---
IMM Update pg 2 of IMM Updated and reviewed w/ patient. Copy provided and copy dated, initialed and placed in chart.
--- NOTE | 2025-05-21 13:21 | P.PN_ITS ---
Subjective 2 Subjective: Hospital course, labs appreciated. Levophed discontinued earlier in the day. Blood pressure maintained over 65. Patient is awake and alert to self, date of . He is aware that he was having hallucinations before. Still continues to have hallucination but able to differentiate between hallucinations and real voices. Not alert to place. Vitals/I&O/Wt Last Vital Signs Temp 97.0 F L 05/21/25 11:58 Pulse 49 L 05/21/25 11:58 Resp 18 05/21/25 11:58 BP 101/62 05/21/25 11:58 Pulse Ox 97 05/21/25 11:58 O2 Del Method Room Air 05/21/25 11:58 05/20/25 05/21/25 05/21/25 22:59 06:59 14:59 Intake Total 1493.89 / 2937.932 50 / 2987.932 1290 / 1290 Balance 1493.89 / 2937.932 50 / 2987.932 1290 / 1290 Weight last 48 hrs Weight 77.156 kg Weight 76.3 kg Physical Exam 2 Narrative: General well-developed well-nourished chronically ill-appearing male, AO x 2 to 3 Oropharynx edentulous CV regular rate and rhythm Lungs clear to auscultation bilaterally Abdomen liver is palpable enlarged and tender suprapubic area patient reports bladder urgency with palpation on exam. Back no flank tenderness Data 05/21/25 03:36 05/21/25 03:36 A&P Assessment and plan 1. Altered mental status: Most likely in setting of sepsis due to UTI leading to worsening dementia along with new medication which started 4 days prior to amission, namely zoloft and alprzolam for agitation. Resolving. Frequent re-orientation. Out of bed to chair 2. Sepsis: Present on admission. In setting of UTI. Associated with metabolic encephalopathy Follow-up blood culture, urine culture. Septic shock resolved. Keep mean blood pressure 65. Levophed discontinued earlier in the day. Change Ringer lactate to 75 degrees cc per hour. 3. Acute UTI: Follow-up blood culture, urine culture. De-escalate antibiotics as per urine culture. For now continue with IV Zosyn. 4. Atrial fibrillation with RVR: Continue with amiodarone drip for now. Start on metoprolol 25 mg twice daily if mean artery pressure remains over 65 in next 4 to 5 hours. Check echocardiogram. 5. Dementia: As [facility] rec from the [facility] Zoloft and alprazolam started recently. For now we will hold off on alprazolam. Continue with Zoloft 50 mg daily. Continue with home dose of melatonin., Donepezil 10 mg nightly 6. Chronic anticoagulation: Takes Xarelto at home. Hemoglobin stable. Stop Lovenox prophylaxis and switch to full dose Xarelto at home dose. 7. Congestive heart failure due to cardiomyopathy: 8. Acute on chronic systolic congestive heart failure: Plan: CODE STATUS: DNR/DNI. Discussed until with patient's dwgxcryt-it-znd on phone. Ephyutoh-sd-iye and son will be the DPOA. #for wvalilog-hb-ivg would be [phone]. Continue with cardiac diet. Protonix OPD prophylaxis Verified to be sufficient for DVT prophylaxis C/w chronic home medications including finasteride, gabapentin, melatonin, Xarelto. Plan for the day: Mentation improving. Seems to be at baseline. Follow-up blood culture and urine culture. For now continue with empiric IV antibiotic. Will finish a 5-day course. Heart rate improved. Episodes of bradycardia. Continue with amiodarone. Changed to 200 mg twice daily. Change metoprolol to 12.5 mg twice daily. Continue with telemonitoring. Given possibility of needing cardiac angiogram for now we will switch from Xarelto to full dose Lovenox 1 mg/kg body weight every 12 hourly from tomorrow morning. Appreciate echocardiogram showing EF of 13% with dilated LV, diastolic dysfunction. Patient currently euvolemic. Stop IV fluids Gives history of CAD post CABG in the past. Currently chest pain-free. Will consult cardiology for further recommendations. Patient might benefit with Lexiscan stress test but given his advanced dementia, status DNR/DNI will confirm with patient's DPOA/son and hjbmvvcr-qu-aog regarding goals of care prior to further testing. Care discussed in detail with patient's qjotdlwd-ma-pyz and son over the phone. They are agreeable for stress test. N.p.o. after midnight. PDMP PDMP Reviewed: Last Reviewed 05/20/25 08:57 by Gilmer Conn MD Attestations 2 Medical Necessity Statement*: Requested hospitalization for management of congestive heart failure while further etiology is ruled out, altered mental status in setting of UTI, A-fib with bradycardia Diagnoses Altered mental status R41.82 Sepsis A41.9 Acute UTI N39.0 Atrial fibrillation with RVR I48.91 Dementia F03.90 Chronic anticoagulation Z79.01 Congestive heart failure due to cardiomyopathy I50.9; I42.9 Acute on chronic systolic congestive heart failure I50.23 Heart failure chronicity: acute on chronic
[2025-05-21] MEDS: MELATONIN 3 MG TABLET PO (20:45)
[2025-05-21] MEDS: ondansetron 2 mg/ML SDV 2 mL 4 MG IVP (22:35)
--- NOTE | 2025-05-21 23:38 | ECG_ITS ---
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 Measurements Intervals [place] Rate: 47 P: 68 OH: 110 QRS: -45 QRSD: 117 T: 180 QT: 295 QTc: 263 Interpretive Statements ATRIAL FLUTTER WITH SLOW VENTRICULAR RATE LEFT ANTERIOR FASCICULAR BLOCK [QRS AXIS <= -45, QR IN I, RS IN II] POSSIBLE ANTERIOR MYOCARDIAL INFARCTION , PROBABLY OLD [30 ms Q WAVE IN V3/V4, OR R < 0.2 mV IN V4] Compared to ECG 05/19/2025 09:19:55 Short OH interval now present Left anterior fascicular block now present Ventricular premature complex(es) no longer present Aberrant conduction of supraventricular beat(s) no longer present Myocardial infarct finding still present Electronically Signed On 05-24-2025 08:49:32 CDT by Beni Leo M.D. [id number]
--- NOTE | 2025-05-21 23:57 | PC.NURSE ---
Contacted MD contacted MD about patient being extremely anxious and restless since family had to leave bedside at 2230, MD ordered 25mg Hydroxyzine PO once, order entered and given this nurse noticed that patient had a 7 beat run of Vtach on monitor at 2321, contacted MD with findings, MD ordered new set of vitals, troponin/EKG set and a mag lab draw. all orders entered and carried out
[2025-05-22] VITALS: TEMP 37.1
[2025-05-22 01:13] LABS: Troponin(5th) Baseline 49 ng/L (0-15)
[2025-05-22 01:17] LABS: Magnesium 1.8 mg/dL (1.7-2.3)
--- NOTE | 2025-05-22 01:41 | ECG_ITS ---
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 Measurements Intervals [place] Rate: 47 P: 63 MS: 116 QRS: -29 QRSD: 126 T: 180 QT: 309 QTc: 276 Interpretive Statements ATRIAL FLUTTER WITH SLOW VENTRICULAR RATE POSSIBLE ANTERIOR MYOCARDIAL INFARCTION , OF INDETERMINATE AGE [30 ms Q WAVE IN V3/V4, OR R < 0.2 mV IN V4] Compared to ECG 05/21/2025 23:38:56 Left anterior fascicular block no longer present Myocardial infarct finding still present Electronically Signed On 05-24-2025 09:43:19 CDT by Beni Leo M.D. [id number]
[2025-05-22] MEDS: HYDROcodone-acetaminophen 5-325 mg Tablet 1 TAB PO (02:15)
[2025-05-22 03:37] LABS: Troponin 5 2HR 49.24 ng/L (0-15); Troponin 5 2HR Delta 0.24 ABS# (0-10)
[2025-05-22 04:00] VITALS: BP 93/64; PULSE 48; RESP 18; TEMP 36.9; O2SAT 92
[2025-05-22 05:25] VITALS: BMI 23.1
--- NOTE | 2025-05-22 05:34 | ECG_ITS ---
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 Measurements Intervals [place] Rate: 47 P: 75 IA: 114 QRS: -22 QRSD: 118 T: 120 QT: 314 QTc: 280 Interpretive Statements ATRIAL FLUTTER WITH SLOW VENTRICULAR RATE POSSIBLE ANTERIOR MYOCARDIAL INFARCTION , OF INDETERMINATE AGE [30 ms Q WAVE IN V3/V4, OR R < 0.2 mV IN V4] POSSIBLE INFERIOR MYOCARDIAL INFARCTION , PROBABLY OLD [30 ms Q WAVE IN II/aVF] Compared to ECG 05/22/2025 01:41:11 No significant changes Electronically Signed On 05-24-2025 09:42:39 CDT by Beni Leo M.D. [id number]
[2025-05-22 06:00] VITALS: PULSE 48
[2025-05-22] MEDS: piperacillin-tazobactam 3.375 GM in sodium chloride 0.9% (plus) 50 ML IV (06:03)
[2025-05-22 07:00] LABS: Hematocrit 29.6 % (37-53); Hemoglobin 8.90 g/dL (11.27-16.99); Mean Corpuscular HGB Conc 30.1 g/dL (30-55); Mean Corpuscular Hemoglobin 22.8 pg (27-33); Mean Corpuscular Volume 75.7 fl (82-101); Nucleated Red Blood Cells % 0 %; Platelet Count 205 10^3/cmm (157-399); Red Blood Count 3.91 10^6/uL (3.85-5.65); White Blood Count 8.26 10^3/uL (3.29-11.43)
[2025-05-22 07:13] LABS: Troponin 5 6HR 49.52 ng/L (0-15); Troponin 5 6HR Delta 0.52 ng/L (0-12)
[2025-05-22 07:36] LABS: Alanine Aminotransferase < 5 U/L (0-41); Albumin Level 3.1 g/dL (3.5-5.2); Alkaline Phosphatase 93 U/L (40-130); Anion Gap 13.7 (5-19); Aspartate Amino Transferase 8 U/L (0-40); Blood Urea Nitrogen 12 mg/dL (8-23); Calcium 9.1 mg/dL (8.5-10.5); Carbon Dioxide 19 mmol/L (22-29); Chloride 109 mmol/L (98-107); Creatinine Clr Calc Pharmacy 84.9892; Globulin 3.2 g/dL (1.3-4.6); Glucose 88 mg/dL (65-115); Osmolality Calculated 285 mOsm/kg (285-295); Potassium 3.7 mmol/L (3.5-5.1); Sodium 138 mmol/L (136-145); Total Protein 6.3 g/dL (6.6-8.7)
[2025-05-22 07:37] LABS: Magnesium 1.8 mg/dL (1.7-2.3)
[2025-05-22 07:58] VITALS: BP 101/56; PULSE 56; RESP 22; TEMP 36.1; O2SAT 93
[2025-05-22 08:00] VITALS: O2SAT 93
--- NOTE | 2025-05-22 09:10 | P.PN_ITS ---
<Statement entered by Beni Leo M.D - 05/22/25 11:54> Patient was cared for in conjunction with an advanced practice practitioner.? I reviewed the chart and all pertinent data including imaging, telemetry, and laboratory results.? I discussed the patient in detail with the advanced practice practitioner.? Please see?their note for progress note, testing results and agreed upon plan of care for the patient. Subjective 2 Subjective: Patient declined stress test this morning and does not want any further workup. He remains in atrial flutter, ventricular rates between 48 and 112 bpm. Blood pressures also soft at times. Vitals/I&O/Wt Last Vital Signs Temp 96.9 F L 05/22/25 07:58 Pulse 56 L 05/22/25 07:58 Resp 22 H 05/22/25 07:58 BP 101/56 05/22/25 07:58 Pulse Ox 93 05/22/25 08:00 O2 Del Method Room Air 05/22/25 08:00 05/21/25 05/22/25 05/22/25 22:59 06:59 14:59 Intake Total 290 / 2710 1010 / 2710 50 / 50 Balance 290 / 2710 1010 / 2710 50 / 50 Weight last 48 hrs Weight 170 lb 14.4 oz Weight 170 lb 1.6 oz Physical Exam 2 Const: COMMON NORMALS: no acute distress and patient oriented x3 GENERAL APPEARANCE: cooperative and comfortable ORIENTATION/CONSCIOUSNESS: Yes awake, Yes oriented to person, Yes oriented to place and Yes oriented to time Chest: COMMONS NORMALS: normal inspection of the chest and normal palpation of entire chest wall CHEST: Yes Symmetrical chest wall rise Resp: COMMON NORMALS: normal respiratory effort, No retractions, No use of accessory muscles and clear to auscultation bilaterally EFFORT & INSPECTION: Yes symmetric chest movement AUSCULTATION: clear to auscultation bilaterally Cardio: COMMON NORMALS: regular rate, S1 normal heart sound present, S2 normal heart sound present, No gallops present (Cardio), No clicks present (Cardio), No murmurs present (Cardio) and No rub (Cardio) RATE: regular rate RHYTHM: a bnormal rhythm regularly irregular HEART SOUNDS: S1 normal heart sound present and S2 normal heart sound present PERIPHERAL PULSES: radial pulses present Extremity: COMMON NORMALS: no pedal edema Neuro: COMMON NORMALS: patient oriented x3 and moves all extremities S ENSORIUM/ORIENTATION: Yes oriented to person, Yes oriented to place and Yes oriented to time Data 05/22/25 06:50 05/22/25 06:50 A&P Assessment and plan 1. Atrial flutter: 2. Chronic anticoagulation: 3. Acute on chronic systolic congestive heart failure: Plan: Since he is declining further workup and his family is in agreement, he will discharge home today. He is asymptomatic currently and appears euvolemic. Will recommend to switch metoprolol to succinate form, agree with reduced dose to 12.5 mg daily. Blood pressure is too soft to add Entresto at this time. Continue amiodarone 200 mg twice daily. We will give him the option to wear an event monitor to adjust medications appropriately, however due to his dementia, he may not be compliant with wearing the monitor. He can follow-up in the cardiology clinic in 2 weeks to monitor medications, perform EKG. PDMP PDMP Reviewed: Not Reviewed Attestations 2 Medical Necessity Statement*: dc home today Coding Level of Care Code Acute Code for [facility] Fwd Diagnoses Atrial flutter I48.92 Chronic anticoagulation Z79.01 Acute on chronic systolic congestive heart failure I50.23 Heart failure chronicity: acute on chronic
--- NOTE | 2025-05-22 09:16 | PM.DCS ---
Discharge Providers Date of Admission: 05/19/25 01:54 Date of Discharge: May 22, 2025 Attending Provider at Admission: Lenny Marin MD Attending Provider at Discharge: Gilmer Conn MD Consults: Cardiology: Dr. Leo Primary Care Provider: Rahat Rick MD Diagnoses at Discharge Discharge Diagnosis 1. Altered mental status: 2. Sepsis: 3. Acute UTI: 4. Atrial fibrillation with RVR: 5. Dementia: 6. Chronic anticoagulation: 7. Congestive heart failure due to cardiomyopathy: 8. Acute on chronic systolic congestive heart failure: Reason for Visit Reason for Visit: ams Brief History: Per HPI Doni Ricks is a 70 year old male resides at [facility] last seen in April for CHF exacerbation with pitting edema, was treated with diuretics then left AMA after going inpatient. Today patient was reluctant to seek medical care but family insisted that he come in due to 3-day history of abdominal pain. Patient was combative with staff and required restraints but then improved after Haldol now cooperative but sleepy. Patient reports that he is cold and feels lousy states his left hip hurts and he has not been able to walk for 8 to 9 years after a fall injury. States he is lived at the [facility] for 6 years. Patient has a radiographic finding of broken hip fixed with screws and poorly healing. Patient CT scan shows thickened bladder consistent with chronic severe infectious cystitis cannot completely exclude malignancy Hospital Course Hospital Course Patient was admitted to the hospital for further evaluation and management of sepsis with concern for UTI leading to altered mental status. Altered mental status in the setting of dementia due to UTI. His mentation improved while being on antibiotics. During hospitalization he had an episode of A-fib with RVR for which he was started on IV amiodarone and later transition to oral amiodarone. Given concerns for recent CHF, echocardiogram was done which showed an EF of 14% with global LV hypokinesis and grade 2 diastolic dysfunction along with moderate TR. Given the above cardiology was consulted. Further evaluation plan was discussed in detail with patient's son. Options discussed were possible cardiac angiogram versus Lexiscan stress test. Family agreed for Lexiscan stress test. On the day of stress test patient refused. Family was agreeable for holding off on any further evaluation as well. Has been discharged to SNF in hemodynamically stable condition on adjusted cardiac medications after completion of antibiotic course. Physical Exam Narrative: General well-developed well-nourished chronically ill-appearing male, AO x 2 to 3 Oropharynx edentulous CV regular rate and rhythm Lungs clear to auscultation bilaterally Abdomen liver is palpable enlarged and tender suprapubic area patient reports bladder urgency with palpation on exam. Back no flank tenderness Discharge Data Studies Completed and Pending Completed Studies During Hospitalization Category Date Time Status CT abdomen pelvis w con* [id number] Stat Cat Scan 05/18/25 22:[address] head wo con* [id number] Stat Cat Scan 05/18/25 22:47 Completed XR chest 1V portable [id number] Stat Exams 05/18/25 22:47 Completed CV. echo complete* [id number] Routine Ultrasound 05/20/25 08:56 Completed Pending at discharge Category Date Time Status Sestamibi Stress Test Request Routine Exams 05/21/25 13:51 Ordered Blood Culture Stat Lab 05/18/25 23:13 Results MAG [Magnesium] AM LABS Lab 05/23/25 04:00 Ordered Urine Culture Stat Lab 05/18/25 23:11 Received Radiology Impressions Abdomen/Pelvis CT 05/18/25 22:47 IMPRESSION: Abnormal appearance to the urinary bladder severe infectious cystitis or infiltrative process of the urothelium not excluded for evaluation recommended . Component could be related to infection and severe cystitis more significant pathology not excluded. Chest X-Ray 05/18/25 22:47 IMPRESSION: As above. Head CT 05/18/25 22:47 IMPRESSION: 1. No acute intracranial abnormality. Senescent changes. 2. Multiple sclerotic foci within the frontal calvarium. Correlate for a prior history of malignancy. Microbiology 05/18/25 23:13 Blood Blood Culture - Preliminary NEGATIVE TO DATE 05/18/25 23:11 Blood Blood Culture - Preliminary NEGATIVE TO DATE Echocardiogram: CONCLUSIONS Normal left ventricular cavity size. Severely decreased left ventricular systolic function. Left ventricular ejection fraction is estimated at 13 %. Global left ventricular hypokinesis. Grade II/IV diastolic dysfunction, moderately elevated filling pressures. Structurally normal mitral valve. Severe mitral valve regurgitation. Moderate tricuspid valve regurgitation. There is no pericardial effusion. Right atrial pressure is around 10 mm of mercury. Karina Turner MD (Electronically Signed) Final Date: 20 May 2025 21:20 Laboratory Results WBC 8.26 10^3/uL (3.29-11.43) 05/22/25 06:50 RBC 3.91 10^6/uL (3.85-5.65) 05/22/25 06:50 Hgb 8.90 g/dL (11.27-16.99) L 05/22/25 06:50 Hct 29.6 % (37-53) L 05/22/25 06:50 MCV 75.7 fl (82-101) L 05/22/25 06:50 MCH 22.8 pg (27-33) L 05/22/25 06:50 MCHC 30.1 g/dL (30-55) 05/22/25 06:50 RDW 22.1 % (12.1-15.1) H 05/22/25 06:50 Plt Count 205 10^3/cmm (157-399) 05/22/25 06:50 MPV 9.2 fL (7.4-10.4) 05/22/25 06:50 Neut % (Auto) 57.9 % 05/22/25 06:50 Lymph % (Auto) 28.0 % 05/22/25 06:50 [place] % (Auto) 10.3 % 05/22/25 06:50 Eos % (Auto) 2.5 % 05/22/25 06:50 Baso % (Auto) 0.8 % 05/22/25 06:50 Neut # (Auto) 4.78 10^3/uL (1.8-7.7) 05/22/25 06:50 Lymph # (Auto) 2.3 10^3/uL (0.8-4.8) 05/22/25 06:50 [place] # (Auto) 0.9 10^3/uL (0.2-0.9) 05/22/25 06:50 Eos # (Auto) 0.2 10^3/uL (0.0-0.8) 05/22/25 06:50 Baso # (Auto) 0.1 10^3/uL (0.0-0.1) 05/22/25 06:50 Nucleated RBC % (auto) 0 % 05/22/25 06:50 Nucleated RBCs # 0.0 /100WBC 05/22/25 06:50 Sodium 138 mmol/L (136-145) 05/22/25 06:50 Potassium 3.7 mmol/L (3.5-5.1) 05/22/25 06:50 Chloride 109 mmol/L (98-107) H 05/22/25 06:50 Carbon Dioxide 19 mmol/L (22-29) L 05/22/25 06:50 Anion Gap 13.7 (5-19) 05/22/25 06:50 BUN 12 mg/dL (8-23) 05/22/25 06:50 Creatinine 0.9 mg/dL (0.7-1.2) 05/22/25 06:50 GFR Calculation 83.7 mL/min (90-130) L 05/22/25 06:50 Glucose 88 mg/dL (65-115) 05/22/25 06:50 Estimat Average Glucose 117 05/20/25 03:00 Hemoglobin A1c 5.7 % (4.0-6.0) 05/20/25 03:00 Calculated Osmolality 285 mOsm/kg (285-295) 05/22/25 06:50 Lactic Acid 2.8 mmol/L (0.5-2.2) H 05/18/25 23:11 Lactic Acid (Sepsis) 0.7 mmol/L (0.5-2.2) 05/19/25 01:25 Calcium 9.1 mg/dL (8.5-10.5) 05/22/25 06:50 Magnesium 1.8 mg/dL (1.7-2.3) 05/22/25 06:50 Iron 20 ug/dL (59-158) L 05/20/25 03:00 TIBC 274 mcg/dl 05/20/25 03:00 % Saturation 7.2 % (20-50) L 05/20/25 03:00 Unsat Iron Binding 254 ug/dL (112-347) 05/20/25 03:00 Total Bilirubin 0.5 mg/dL (0.15-1.2) 05/22/25 06:50 AST 8 U/L (0-40) 05/22/25 06:50 ALT < 5 U/L (0-41) 05/22/25 06:50 Alkaline Phosphatase 93 U/L (40-130) 05/22/25 06:50 Creatine Kinase 107 U/L (39-308) 05/18/25 23:11 Troponin T Baseline 49 ng/L (0-15) H 05/22/25 00:39 Troponin T 120 Minute 49.24 ng/L (0-15) H 05/22/25 03:11 Delta Troponin T 0.24 ABS# (0-10) 05/22/25 03:11 Troponin T Hi Sens 6Hr 49.52 ng/L (0-15) H 05/22/25 06:50 Troponin T Hi Sens 6Hr Delta 0.52 ng/L (0-12) 05/22/25 06:50 C-Reactive Protein 24.7 mg/L (0.0-4.9) H 05/18/25 23:11 NT-Pro-B Natriuret Pep 9981 pg/mL (0-125) H 05/18/25 23:11 Total Protein 6.3 g/dL (6.6-8.7) L 05/22/25 06:50 Albumin 3.1 g/dL (3.5-5.2) L 05/22/25 06:50 Globulin 3.2 g/dL (1.3-4.6) 05/22/25 06:50 Triglycerides 90 mg/dL (0-150) 05/21/25 03:36 Cholesterol 113 mg/dL (0-200) 05/21/25 03:36 LDL Cholesterol, Calc 76 mg/dL (50-129) 05/21/25 03:36 Total VLDL Cholesterol 18 mg/dL (0-30) 05/21/25 03:36 HDL Cholesterol 19 mg/dL (60-100) L 05/21/25 03:36 Cholesterol/HDL Ratio 5.95 mg/dL (1.0-5.00) H 05/21/25 03:36 Lipase 27 U/L (13-60) 05/18/25 23:11 Vitamin B12 255 pg/mL (232-1245) 05/20/25 03:00 Folate 9.7 ng/mL (4.5-32.2) 05/21/25 03:36 Procalcitonin 0.04 ng/mL (0-0.5) 05/20/25 03:00 TSH 8.88 uIU/mL (0.27-4.20) H 05/20/25 03:00 Urine Color Yellow (Yellow) 05/18/25 23:11 Urine Appearance Turbid (CLEAR) A 05/18/25 23:11 Urine pH 6.0 (5-7) 05/18/25 23:11 Ur Specific [place] 1.009 (1.005-1.030) 05/18/25 23:11 Urine Protein Trace (Negative) A 05/18/25 23:11 Urine Glucose (UA) Negative (Normal) 05/18/25 23:11 Urine Ketones Negative (Negative) 05/18/25 23:11 Urine Blood 1+ (Negative) A 05/18/25 23:11 Urine Nitrate Positive (Negative) A 05/18/25 23:11 Urine Bilirubin Negative (Negative) 05/18/25 23:11 Urine Urobilinogen 1.0 mg/dL (Negative) 05/18/25 23:11 Ur Leukocyte Esterase 3+ (Negative) A 05/18/25 23:11 Urine RBC 6-10 /hpf (0-2) 05/18/25 23:11 Urine WBC Too numerous to cnt /hpf (0-5) H 05/18/25 23:11 Ur Squamous Epith Cells 5-10 /hpf (0-5) H 05/18/25 23:11 Amorphous Sediment Not Reportable 05/18/25 23:11 Urine Bacteria 4+ /hpf (NONE) H 05/18/25 23:11 Vitals Last Vital Signs Temp 96.9 F L 05/22/25 07:58 Pulse 56 L 05/22/25 07:58 Resp 22 H 05/22/25 07:58 BP 101/56 05/22/25 07:58 Pulse Ox 93 05/22/25 07:58 O2 Del Method Room Air 05/22/25 04:00 Discharge Plan Discharge Patient Disposition: Xfer SNF Condition: Stable Prescriptions: New amiodarone [Pacerone] 200 mg Tablet 200 mg PO BID Qty: 60 0RF Rx Instructions: Twice a day for 1 week, then once daily donepezil 5 mg Tablet 10 mg PO BEDTIME 30 Days Qty: 60 0RF metoprolol succinate 25 mg tablet extended release 24 hr 12.5 mg PO DAILY Qty: 20 0RF Continued acetaminophen 325 mg Tablet 650 mg PO Q6H PRN (Reason: Pain) nutritional supplements Liquid See Rx Instructions .ROUTE .COMPLEX Rx Instructions: Give 250 ml by mouth as needed for malnutrition and decrease in appetite. Giv if resident does not eat above 50% of meal. sertraline 100 mg tablet 100 mg PO DAILY spironolactone 25 mg tablet 25 mg PO DAILY tamsulosin 0.4 mg capsule 0.4 mg PO DAILY pantoprazole 40 mg tablet,delayed release (DR/EC) 40 mg PO DAILY budesonide 0.5 mg/2 mL suspension for nebulization 0.5 mg inhalation BID furosemide 20 mg tablet See Rx Instructions .ROUTE .COMPLEX Rx Instructions: Give 1 tablet by mouth daily as needed for moderate edeman and give 2 tablets daily as needed for severe edema. gabapentin 100 mg capsule 200 mg PO TID nystatin 100,000 unit/gram powder See Rx Instructions .ROUTE .COMPLEX Rx Instructions: Apply to groin and abdominal folds topically twice daily every day and evening shift for redness/yeast until meño and then as needed. polyethylene glycol 3350 [Miralax] 17 gram/dose Powder 17 g PO DAILY albuterol sulfate 90 mcg/actuation Hfa Aerosol Inhaler 2 puff INHALATION Q6H PRN (Reason: Shortness Of Breath Or Wheezing) oxycodone 20 mg/mL concentrate 5 mg PO TID Rx Instructions: 0.25ml finasteride 5 mg tablet 5 mg PO DAILY melatonin 5 mg Tablet 5 mg PO BEDTIME Xarelto 20 mg tablet 20 mg PO DAILY nitroglycerin [Nitrostat] 0.4 mg Tablet, Sublingual 0.4 mg SUBLINGUAL Q5M PRN (Reason: Chest Pain) Rx Instructions: do not exceed 3 doses per episode Changed alprazolam 0.25 mg tablet 0.25 mg PO BID PRN (Reason: Agitation) Qty: 1 0RF Discontinued metoprolol tartrate 25 mg tablet 25 mg PO BID olanzapine 5 mg tablet 5 mg PO DAILY Referrals: [facility] [Outside] Patient Instructions: Altered Mental Status (ED), Opioid Safety, Patient Portal & Billy Instructions Discharge Attestations Time Spent in Discharge Care*: greater than 30 min Specific Discharge Activities: educating patient, educating and/or supporting family/caregiver, discussing with pcp/other providers, discussing with senior case manager/social workers/dc planners, documenting/other paperwork and evaluating patient/reviewing data Status at Discharge: Cognitive status at discharge: mildly impaired cognition, Behavioral status at discharge: cooperative, Functional status at discharge: other assisted ambulation, Overall status at discharge: patient is back to baseline Quality Metrics Clinical Quality Measures [ No reported AMI, CVA or VTE this stay] Coding Level of Care Code 67322 Total time (in minutes) for Discharge: 65 Diagnoses Altered mental status R41.82 Sepsis A41.9 Acute UTI N39.0 Atrial fibrillation with RVR I48.91 Dementia F03.90 Chronic anticoagulation Z79.01 Congestive heart failure due to cardiomyopathy I50.9; I42.9 Acute on chronic systolic congestive heart failure I50.23 Heart failure chronicity: acute on chronic
--- NOTE | 2025-05-22 09:18 | PC.NURSE ---
Providers made aware that patient refused his stress test this morning.
--- NOTE | 2025-05-22 09:22 | XRR_ITS ---
PROCEDURE INFORMATION: Exam: XR Bilateral Hips Exam date and time: 05/22/2025 9:29 AM Age: 70 years old Clinical indication: Hip pain; Bilateral TECHNIQUE: Imaging protocol: Radiologic exam of the bilateral hips. Views: 2 views of hips with pelvis when performed. COMPARISON: CT abdomen pelvis w con* [id number] 05/18/2025 11:30 PM FINDINGS: Bones/joints: ORIF of a subcapital fracture of the proximal left femur. The fracture line remains visible. Hardware is intact. Mild degenerative changes of the right hip. No right-sided fracture. Chronic flattening and deformity of the femoral head. No acute fracture. Soft tissues: Unremarkable. XR/XR hip BI 3-4V wo/w pel [id number] IMPRESSION: No acute findings.
--- NOTE | 2025-05-22 09:23 | PC.NURSE ---
Provider ordered bilateral hip x-rays and tramadol 100mg once.
--- NOTE | 2025-05-22 11:11 | PC.NURSE ---
Report is called with BRIELLE Hawk at [facility] at 1111. [facility] is sending transportation for flower picker.
[2025-05-22 12:52] VITALS: BP 106/72; PULSE 75; RESP 20; O2SAT 94
--- NOTE | 2025-05-22 13:05 | PC.NURSE ---
Provider is updated with hip x-ray.
== END 2025-05-22 13:13 | disposition skilled nursing facility (03) | DRG 871 ==
LOC: ER 05-19 03:23 → ER IP 05-19 07:46 → ICU 05-19 11:20 → CSU 05-20 21:54
PROVIDERS: Family Medicine; Internal Medicine; Admitting Provider Internal Medicine; Emergency Provider Emergency Medicine; PCP Internal Medicine; Visit Provider Student in an Organized Health Care Education/Training Program
DX: A41.9 Sepsis, unspecified organism (principal); G93.41 Metabolic encephalopathy; I50.23 Acute on chronic systolic (congestive) heart failure; R65.21 Severe sepsis with septic shock; N39.0 Urinary tract infection, site not specified; I42.9 Cardiomyopathy, unspecified; F03.918 Unspecified dementia, unspecified severity, with other behavioral disturbance; I48.92 Unspecified atrial flutter; I25.10 Atherosclerotic heart disease of native coronary artery without angina pectoris; I48.91 Unspecified atrial fibrillation; F17.210 Nicotine dependence, cigarettes, uncomplicated; G89.29 Other chronic pain; D50.9 Iron deficiency anemia, unspecified; Z78.1 Physical restraint status; Z66 Do not resuscitate; Z79.01 Long term (current) use of anticoagulants; Z95.1 Presence of aortocoronary bypass graft; Z88.6 Allergy status to analgesic agent; Z88.8 Allergy status to other drugs, medicaments and biological substances; Z91.048 Other nonmedicinal substance allergy status; Z79.899 Other long term (current) drug therapy
CPT/HCPCS: 36415; 70450; 71045; 73522; 74177; 80048; 80053; 80061; 81001; 82550; 82607; 82746; 83036; 83540; 83550; 83605; 83690; 83735; 83880; 84145; 84443; 84484; 85025; 86140; 87040; 87086; 93005; 93306; 94640; 96365; 96366; 96367; 96372; 96375; 97162; 97530; 99285; A4222; J0283; J0696; J1630; J1650; J2270; J2405; J2543; J7030; J7120; J7626; J9999